=== PATIENT | female | born 1965 | race Caucasian/White ===

== ENCOUNTER → 2017-04-25 | Day surgery (SDC) | payer OTHER ==
[~2017-04-25] MED LIST: BUPIVACAINE/EPINEPHRINE 0.5% PF 10 ML VIAL ONE; HEPARIN SODIUM - IV 10,000 UNITS/10 ML VIAL ONE; KETOROLAC TROMETHAMINE 30 MG/ML (IVP) VIAL ONE; LACTATED RINGER'S 1000 ML INJ 1,000 ML ONE; MIDAZOLAM HCL 2 MG/2 ML VIAL ONE; ONDANSETRON HCL 4 MG/2 ML VIAL IV PUSH ONE; PROPOFOL 200 MG/20 ML AMP IV ONE; SODIUM CHLORIDE 0.9% 20 ML VIAL ONE; ceFAZolin 2 GM PREMIX 50 ML ONE
--- NOTE | 2017-04-25 14:47 | TN ---
cc: SABRINA WARREN DATE OF SURGERY: 04/25/2017. PRINCIPAL DIAGNOSIS: Clinical stage III left breast cancer. PROCEDURE PERFORMED: Right subclavian Infusaport placement. SURGEON: Sabrina Warren MD. ANESTHESIA: General via LMA device. INDICATIONS FOR THE PROCEDURE: The patient is a 51-year-old female with clinical stage III left breast cancer. She now presents for port placement to facilitate neoadjuvant chemotherapy. FINDINGS AT THE TIME OF SURGERY: Normal right subclavian anatomy was identified. DESCRIPTION OF THE PROCEDURE IN DETAIL: After informed consent was obtained and site verification was performed, the patient was brought to the major operating room where she underwent general anesthesia via an LMA device. She was given a single dose of IV Ancef and sequential compression hose were placed. She was placed in the Trendelenburg position and the right and left chest and neck were prepped and draped in sterile fashion. The right subclavian vein was easily accessed via percutaneous cannulation and a J-wire was advanced via the Seldinger technique using fluoroscopy into the central circulation without difficulty. Sharp and electrocautery dissection was then performed around the wire to create a subcutaneous pocket for the reservoir. The catheter was measured out at 30 cm and cut off. A peel-away sheath and introducer were advanced over the wire using fluoroscopic guidance and the introducer and wire were then removed. The catheter advanced easily through the peel-away sheath for a total distance of 20 cm and there was good position of the catheter tip at the atriocaval junction at 18 cm. The peel-away sheath was removed and the catheter was secured to the Infusaport reservoir which was noted to flush and aspirate easily. The PowerPort reservoir was then secured to the chest wall using interrupted 2-0 Prolene sutures. Good hemostasis was noted and the wound was closed using interrupted 3-0 Vicryl subcutaneous sutures and a 4-0 Monocryl subcuticular suture. Steri-Strips and a sterile dressing were applied. Chest x-ray is pending at the time of this dictation and the patient was brought to the recovery room in good condition. MD JACKY Sauer/NANCY /11:37 AM /2:39 PM
== END | disposition home or self-care (01) ==
LOC: ESDC 08:00
PROVIDERS: ATTEND Surgery
DX: C50.912 Malignant neoplasm of unspecified site of left female breast (principal)
CPT/HCPCS: 00532; 36561; 77001; C1788; J0690; J1644; J1885; J2250; J2405; J3010; J7120